=== PATIENT | male | born 1985 | race Caucasian/White ===

== ENCOUNTER 2016-06-12 15:17 | Emergency (ER) | payer MEDICAID ==
[~2016-06-12] VITALS: Ht 185.4 cm; Wt 91.0 kg
[2016-06-12 15:18] VITALS: BP 114/83; PULSE 91; TEMP 98.3; O2SAT 97
[2016-06-12] MEDS ORDERED: ANTICRE6 (15:45)
[2016-06-12] MEDS ORDERED: KETOROLAC TROMETHAMINE 60 MG/2 ML (IM) VIAL IM ONE (16:15)
[2016-06-12] MEDS ORDERED: CLINDAMYCIN PHOS 600 MG/4 ML VIAL IM ONE (16:15)
--- NOTE | 2016-06-12 16:15 | PD ---
HPI Chief Complaint: Oral / Dental Pain or Problem Time Seen by Provider: 16:09 Travel History International Travel<30 days: No Contact w/Intl Traveler<30days: No Traveled to known affect area: No History of Present Illness HPI 30-year-old [place] male presents to emergency department with several day history of left lower jaw pain and swelling with some spontaneous drainage yesterday. Patient's pain is centered over the #18 tooth. He has localized gingival swelling tenderness. Patient denies difficulty swallowing or neck pain. He denies fever, chills, or other symptoms. He has no known drug allergies. [facility] Past Medical History Medical History: Denies Significant Hx Tetanus Vaccination: > 5 Years Past Surgical History Surgical History: No Previous Surgery Social History Alcohol Use: No Tobacco Use: No Allergies-Medications (Allergen,Severity, Reaction): Coded Allergies: No Known Allergies (Unverified , 06/12/16) Reported Meds & Prescriptions Reported Meds & Active Scripts Active Reported [Antibiotic] Review of Systems Except as stated in HPI: all other systems reviewed are Neg General / Constitutional: No: Fever Eyes: No: Visual changes HENT: Positive: Dental Difficulties, No: Headaches, Sore Throat, Rhinitis, Rhinorrhea, Congestion, Neck Stiffness, Neck Pain, Gingival Bleeding, Ear Discharge, Earache Cardiovascular: No: Chest Pain or Discomfort Respiratory: No: Shortness of Breath Gastrointestinal: No: Abdominal Pain Genitourinary: No: Dysuria Musculoskeletal: No: Pain Skin: No Rash Neurologic: No: Weakness Psychiatric: No: Depression Endocrine: No: Polydipsia Hematologic/Lymphatic: No: Easy Bruising Physical Exam Narrative GENERAL: Patient appears in mild distress. SKIN: Warm and dry. Normal color. Normal turgor. HEAD: Atraumatic. Normocephalic. EYES: Pupils equal and round. No scleral icterus. No injection or drainage. ENT: No nasal bleeding or discharge. Mucous membranes pink and moist. Patient is tenderness at the #18 tooth. Patient has localized swelling and tenderness along the left lower jaw consistent with a dental abscess. Pharynx is clear. Uvula is midline. No significant lymphadenopathy. Airway is patent. NECK: Trachea midline. Nontender without lymphadenopathy. No Emeka's angina noted. CARDIOVASCULAR: Regular rate and rhythm. RESPIRATORY: No accessory muscle use. Clear to auscultation. Breath sounds equal bilaterally. MUSCULOSKELETAL: Extremities without clubbing, cyanosis, or edema. No obvious deformities. NEUROLOGICAL: Awake and alert. No obvious cranial nerve deficits. Motor grossly within normal limits. Five out of 5 muscle strength in the arms and legs. Normal speech. PSYCHIATRIC: Appropriate mood and affect; insight and judgment normal. Data Data Last Documented VS Vital Signs Date Time Temp Pulse Resp B/P Pulse Ox O2 Delivery O2 Flow Rate FiO2 06/12/16 15:18 98.3 91 114/83 97 Orders Ketorolac Inj (Toradol Inj) (06/12/16 16:15) Clindamycin Inj (Cleocin Inj) (06/12/16 16:15) Ubpt-Jufl-Jdsx Liq (Magic Mouthwash Adul (06/12/16 18:00) [facility] Medical Decision Making Medical Screen Exam Complete: Yes Emergency Medical Condition: Yes Differential Diagnosis Dental pain. Dental abscess. Need tramadol asked. Narrative Course Patient is felt to be medically stable at time of exam. Patient is given 600 mg clindamycin IM. Patient is given 60 mg Toradol IM. Patient is given Magic mouthwash for dental pain. Patient is felt to be stable to be discharged home. Patient is to continue clindamycin 300 mg 4 times a day 7 days. Patient is to take ibuprofen 800 mg 3 times daily with food. Patient given Magic mouthwash for dental pain every 2 hours when necessary. Patient is to seek dental care as soon as possible. Patient should return the emergency Department with worsening symptoms as needed. Diagnosis Primary Impression: Dental abscess Referrals: Dentist Patient Instructions: Dental Abscess (ED), General Instructions Additional Instructions: Patient is given 600 mg clindamycin IM. Patient is given 60 mg Toradol IM. Patient is given Magic mouthwash for dental pain. Patient is felt to be stable to be discharged home. Patient is to continue clindamycin 300 mg 4 times a day 7 days. Patient is to take ibuprofen 800 mg 3 times daily with food. Patient given Magic mouthwash for dental pain every 2 hours when necessary. Patient is to seek dental care as soon as possible. Patient should return the emergency Department with worsening symptoms as needed. Med/Other Pt SpecificInfo: Prescription(s) given Disposition: DISCHARGE HOME Condition: Stable Lorenzo Carrera Jun 12, 2016 16:15
[2016-06-12] MEDS ORDERED: CLIN150 PO (16:17)
[2016-06-12] MEDS ORDERED: IBUP800T23 PO (16:17)
[2016-06-12] MEDS ORDERED: MAGICADU2 SWISH-SWAL (16:17)
[2016-06-12] MEDS ORDERED: NYSTAT/DIPHENHY/LIDO MOUTHWASH (Adult) 120ML SWISH-SWAL ONE (16:30)
[2016-06-12] MEDS ORDERED: NYSTAT/DIPHENHY/LIDO MOUTHWASH (Adult) 120ML SWISH-SWAL SCH (18:00)
== END 2016-06-12 17:10 | disposition home or self-care (01) ==
LOC: NEPB 15:17
DX: K04.7 Periapical abscess without sinus (principal)
CPT/HCPCS: 96372; 99283; J1885

== ENCOUNTER 2016-07-01 12:14 | Emergency (ER) | payer MEDICAID ==
[~2016-07-01] VITALS: Ht 185.4 cm; Wt 90.5 kg
[~2016-07-01 12:14] MED LIST: ANTICRE6; CLIN150 PO; IBUP800T23 PO; MAGICADU2 SWISH-SWAL
[2016-07-01 12:16] VITALS: BP 142/88; PULSE 88; RESP 18; TEMP 97.7; O2SAT 100
[2016-07-01] MEDS ORDERED: methylPREDNISolone SOD SUCC 125 MG/2 ML VIAL IM ONE (14:30)
[2016-07-01] MEDS ORDERED: AMPICILLIN-SULBACTAM INJ 3 GM VIAL IM ONE (14:30)
--- NOTE | 2016-07-01 14:51 | PD ---
HPI Chief Complaint: Oral / Dental Pain or Problem Time Seen by Provider: 14:02 Travel History International Travel<30 days: No Contact w/Intl Traveler<30days: No Traveled to known affect area: No History of Present Illness HPI This patient complains of left sided jaw pain and swelling. He has dental infection and was seen here 3 weeks ago. He was prescribed 10 days of clindamycin at that visit. He filled the prescription for days later and took it for a few days and then stopped. The swelling is worse and so he came back to the ER. He does have a dentist appointment in 4 days. No fever. No drainage. Symptoms severity is moderate. No alleviating factors PFSH Past Medical History Medical other: Yes (dental abcess/left bottom) Social History Alcohol Use: No Tobacco Use: No Allergies-Medications (Allergen,Severity, Reaction): Coded Allergies: No Known Allergies (Unverified , 06/12/16) Reported Meds & Prescriptions Reported Meds & Active Scripts Active Prednisone 20 Mg Tab 40 Mg PO DAILY Take 40 mg (2 tablets) daily for 5 days Percocet (Oxycodone-Acetaminophen) 5-325 mg Tab 1 Tab PO Q6H PRN Augmentin (Amoxicillin-Clavulanate) 875-125 mg Tab 875 Mg PO BID not for use in CrCl <30 ml/min. Magic Mouthwash Adult Liq (Multi-Ingredient Mouthwash/Gargle) 120 Ml Susp 5 Ml SWISH-SWAL ACHS Each 5 mL contains: Nystatin 200,000 units, Diphenhydramine 4.25 mg, Viscous Lidocaine 10 mg, Miller syrup 0.8 mL Ibuprofen 800 Mg Tab 800 Mg PO Q8H PRN Cleocin (Clindamycin HCl) 150 Mg Cap 300 Mg PO Q6H 10 Days Reported [Antibiotic] Review of Systems General / Constitutional: No: Fever Eyes: No: Visual changes HENT: Positive: Dental Difficulties, No: Headaches Cardiovascular: No: Chest Pain or Discomfort Respiratory: No: Shortness of Breath Gastrointestinal: No: Abdominal Pain Genitourinary: No: Dysuria Musculoskeletal: Positive: Pain Skin: No Rash Neurologic: No: Weakness Psychiatric: No: Depression Endocrine: No: Polydipsia Hematologic/Lymphatic: No: Easy Bruising Physical Exam Narrative GENERAL: Well-nourished, well-developed patient. SKIN: Warm and dry. HEAD: Normocephalic. He does have some left lower facial swelling centered about the mandible. There is no fluctuance. No submental induration. Uvula midline. No jeopardy of airway. No redness or warmth or drainage. No gingival abscess seen. Multiple fillings are noted EYES: No scleral icterus. No injection or drainage. NECK: Supple, trachea midline. No JVD or lymphadenopathy. CARDIOVASCULAR: Regular rate and rhythm without murmurs, gallops, or rubs. RESPIRATORY: Breath sounds equal bilaterally. No accessory muscle use. GASTROINTESTINAL: Abdomen soft, non-tender, nondistended. MUSCULOSKELETAL: No cyanosis, or edema. BACK: Nontender without obvious deformity. No CVA tenderness. Data Data Last Documented VS Vital Signs Date Time Temp Pulse Resp B/P Pulse Ox O2 Delivery O2 Flow Rate FiO2 07/01/16 12:16 97.7 88 18 142/88 100 Room Air Orders Ampicillin-Sulbactam Inj (Unasyn Inj) (07/01/16 14:30) Methylprednisolone So Succ Inj (Solumedr (07/01/16 14:30) MDM Medical Decision Making Medical Screen Exam Complete: Yes Emergency Medical Condition: Yes Medical Record Reviewed: Yes Differential Diagnosis Dental abscess, cavity, facial cellulitis Narrative Course I have reviewed the patient's electronic medical record. Patient was seen here 3 weeks ago for the same thing and I reviewed that note I gave him injection of Unasyn and Solu-Medrol I wrote him 10 days of Augmentin and 3 days of prednisone and something for pain As noted he has dental follow-up in 4 days Diagnosis Primary Impression: Dental abscess Additional Instructions: The patient was advised to follow up with their dentist and return if they worsen. The patient was warned about potential sedation for the medications they will receive on prescription. Med/Other Pt SpecificInfo: Prescription(s) given Scripts Prednisone 20 Mg Tab40 Mg PO DAILY #6 TAB Ref 0 Take 40 mg (2 tablets) daily for 5 days Prov:Jared Vo MD 07/01/16 Oxycodone-Acetaminophen (Percocet)5-325 mg Tab1 Tab PO Q6H PRN (PAIN) #15 TAB Ref 0 Prov:Jared Vo MD 07/01/16 Amoxicillin-Clavulanate (Augmentin)875-125 mg Ttu558 Mg PO BID #20 TAB Ref 0 not for use in CrCl <30 ml/min. Prov:Jared Vo MD 07/01/16 Disposition: 01 DISCHARGE HOME Condition: Stable Jared Vo MD Jul 01, 2016 14:51
[2016-07-01] MEDS ORDERED: PERC5TAB12 PO (16:03)
[2016-07-01] MEDS ORDERED: AUGM875T PO (16:03)
[2016-07-01] MEDS ORDERED: PRED20 PO (16:03)
== END 2016-07-01 16:15 | disposition home or self-care (01) ==
LOC: NEPC 12:14
DX: K04.7 Periapical abscess without sinus (principal)
CPT/HCPCS: 96372; 99283; J0295; J2930

== ENCOUNTER 2017-06-15 00:37 | Emergency (ER) | payer MEDICAID ==
[~2017-06-15] VITALS: Ht 185.4 cm; Wt 82.0 kg
[~2017-06-15 00:37] MED LIST changes: +AUGM875T PO; +IBUP1TAB7 PO; -IBUP800T23 PO; +PERC5TAB12 PO; +PRED20 PO
[2017-06-15 00:44] VITALS: BP 144/82; PULSE 84; RESP 20; TEMP 98; O2SAT 98
[2017-06-15 01:00] VITALS: RESP 16; O2SAT 98
--- NOTE | 2017-06-15 01:08 | PD ---
HPI Chief Complaint: General Weakness Time Seen by Provider: 00:52 Travel History International Travel<30 days: No Contact w/Intl Traveler<30days: No Traveled to known affect area: No History of Present Illness HPI The patient is a 31 year old male who presents to the [facility] emergency department with a history of withdrawal symptoms that began 2 days ago. He last took an oxycodone on Thursday. He has been taking oxycodone intermittently for the last 6 years. He is purchasing them from the street. He was using 30mg tablets 2-3 per day. He tried weaning himself off of the medication. He was snorting the pills. He denies any vomiting or diarrhea. He last moved his bowels 5 days ago. He has a headache over both temples. He has had some chills without fever. Otherwise on review of systems, the patient denies having any cough or congestion, neck pain, chest pain, shortness of breath, abdominal pain , urinary symptoms, or neurologic symptoms. The patient reports having generalized body aches with difficulty sleeping. [facility] Past Medical History Narrative Medical The patient's past medical history is significant for opiate abuse. Medical History: Denies Significant Hx Immunizations Current: Yes Past Surgical History Surgical History: No Previous Surgery Social History Alcohol Use: No Tobacco Use: Yes (1ppd) Substance Use: Yes (oxycodone) Allergies-Medications (Allergen,Severity, Reaction): Coded Allergies: No Known Allergies (Unverified Adverse Reaction, Unknown, 06/15/17) Reported Meds & Prescriptions Reported Meds & Active Scripts Active Clonidine (Clonidine HCl) 0.1 Mg Tab 0.1 Mg PO BID Vistaril (Hydroxyzine Pamoate) 25 Mg Cap 25 Mg PO HS 7 Days Review of Systems Except as stated in HPI: all other systems reviewed are Neg General / Constitutional: Positive: Chills, No: Fever Eyes: No: Visual changes HENT: No: Headaches Cardiovascular: No: Chest Pain or Discomfort Respiratory: No: Shortness of Breath Gastrointestinal: Positive: Nausea, Constipation, No: Vomiting, Diarrhea, Abdominal Pain Genitourinary: No: Dysuria Musculoskeletal: Positive: Myalgias, No: Pain Skin: No Rash Neurologic: No: Weakness, Focal Abnormalities, Change in Mentation, Slurred Speech, Sensory Disturbance Psychiatric: No: Depression Endocrine: No: Polydipsia Hematologic/Lymphatic: No: Easy Bruising Physical Exam Narrative General: The patient is a well-developed well-nourished male in no acute distress Head and Neck exam: Head is normocephalic atraumatic. Eyes: EOMI, pupils are equal round and reactive to light. Nose: Midline septum with pink mucous membranes Mouth: Dentition unremarkable. Moist mucus membranes. Posterior oropharynx is not erythematous. No tonsillar hypertrophy. Uvula midline. Airway patent. Neck: No palpable lymphadenopathy. No nuchal rigidity. No thyromegaly. Cardiovascular: Regular rate and rhythm without murmurs, gallops, or rubs. No pulse deficit to the extremities on simultaneous auscultation and palpation of his radial artery. Lungs: Clear to auscultation bilaterally. No wheezes, rhonchi, or rales. Abdomen: Soft, without tenderness to palpation in all 4 quadrants of the abdomen. No guarding, rebound, or rigidity. Normal bowel sounds are audible. No tenderness on palpation of McBurney's point. Extremities: No clubbing, cyanosis, or edema. 2+ pulses in all 4 extremities. No calf tenderness on palpation. Back: No spinous process tenderness to palpation. No costovertebral angle tenderness to palpation. Neurologic Exam: Grossly nonfocal. Skin Exam: No rash noted. Intact skin that is warm and dry. Data Data Last Documented VS Vital Signs Date Time Temp Pulse Resp B/P (MAP) Pulse Ox O2 Delivery O2 Flow Rate FiO2 06/15/17 01:00 16 98 Room Air 06/15/17 00:44 98.0 84 144/82 (102) Orders Orders Electrocardiogram (06/15/17 01:02) Complete Blood Count With Diff (06/15/17 01:02) Comprehensive Metabolic Panel (06/15/17 01:02) Lipase (06/15/17 01:02) Urinalysis - C+S If Indicated (06/15/17 01:02) Magnesium (Mg) (06/15/17 01:02) Iv Access Insert/Monitor (06/15/17 01:02) Ecg Monitoring (06/15/17 01:02) Oximetry (06/15/17 01:02) Drug Screen, Random Urine (06/15/17 01:02) Alcohol (Ethanol) (06/15/17 01:02) Salicylates (Aspirin) (06/15/17 01:02) Tylenol (Acetaminophen) (06/15/17 01:02) Sodium Chlor 0.9% 1000 Ml Inj (Ns 1000 M (06/15/17 02:00) Clonidine (Catapres) (06/15/17 02:00) Ondansetron Inj (Zofran Inj) (06/15/17 02:00) Hydroxyzine Pamoate (Vistaril) (06/15/17 02:00) Ed Discharge Order (06/15/17 03:43) Labs Laboratory Tests Test 06/15/17 01:00 06/15/17 01:50 White Blood Count 7.5 TH/MM3 Red Blood Count 4.95 MIL/MM3 Hemoglobin 14.7 GM/DL Hematocrit 42.1 % Mean Corpuscular Volume 85.1 FL Mean Corpuscular Hemoglobin 29.7 PG Mean Corpuscular Hemoglobin Concent 34.8 % Red Cell Distribution Width 13.2 % Platelet Count 322 TH/MM3 Mean Platelet Volume 7.8 FL Neutrophils (%) (Auto) 57.6 % Lymphocytes (%) (Auto) 30.6 % Monocytes (%) (Auto) 10.5 % Eosinophils (%) (Auto) 0.7 % Basophils (%) (Auto) 0.6 % Neutrophils # (Auto) 4.3 TH/MM3 Lymphocytes # (Auto) 2.3 TH/MM3 Monocytes # (Auto) 0.8 TH/MM3 Eosinophils # (Auto) 0.1 TH/MM3 Basophils # (Auto) 0.0 TH/MM3 CBC Comment DIFF FINAL Differential Comment Blood Urea Nitrogen 11 MG/DL Creatinine 0.82 MG/DL Random Glucose 112 MG/DL Total Protein 7.3 GM/DL Albumin 3.7 GM/DL Calcium Level 8.9 MG/DL Magnesium Level 2.0 MG/DL Alkaline Phosphatase 57 U/L Aspartate Amino Transf (AST/SGOT) 13 U/L Alanine Aminotransferase (ALT/SGPT) 27 U/L Total Bilirubin 0.3 MG/DL Sodium Level 142 MEQ/L Potassium Level 3.5 MEQ/L Chloride Level 109 MEQ/L Carbon Dioxide Level 28.1 MEQ/L Anion Gap 5 MEQ/L Estimat Glomerular Filtration Rate 110 ML/MIN Lipase 375 U/L Salicylates Level 2.1 MG/DL Acetaminophen Level LESS THAN 2.0 MCG/ML Ethyl Alcohol Level LESS THAN 3 MG/DL Urine Color LIGHT-YELLOW Urine Turbidity CLEAR Urine pH 7.0 Urine Specific [place] 1.008 Urine Protein NEG mg/dL Urine Glucose (UA) NEG mg/dL Urine Ketones NEG mg/dL Urine Occult Blood NEG Urine Nitrite NEG Urine Bilirubin NEG Urine Urobilinogen LESS THAN 2.0 MG/DL Urine Leukocyte Esterase NEG Urine RBC LESS THAN 1 /hpf Urine WBC LESS THAN 1 /hpf Microscopic Urinalysis Comment CULT NOT INDICATED Urine Opiates Screen NEG Urine Barbiturates Screen NEG Urine Amphetamines Screen NEG Urine Benzodiazepines Screen NEG Urine Cocaine Screen NEG Urine Cannabinoids Screen NEG MDM Medical Decision Making Medical Screen Exam Complete: Yes Emergency Medical Condition: Yes Medical Record Reviewed: Yes Differential Diagnosis Electrolyte derangements, versus opiate withdrawal syndrome, versus viral illness Narrative Course During the course of the patient's emergency department visit, the patient's history, examination, and differential diagnosis were reviewed with the patient. The patient was placed on a air sampling and monitoring with oximetry and frequent blood pressure monitoring. The patient had IV access obtained and blood work sent for analysis. The patient was initially provided Zofran for nausea, normal saline 1 L IV fluid bolus, Vistaril 25 mg p.o. 1, clonidine 0.1 mg p.o. 1. The patient's laboratory studies were reviewed and remarkable for a CBC that is unremarkable, CMP is remarkable for chloride of 109, glucose 112, AST 13, lipase 375,, urinalysis is unremarkable, UDS negative, Salicylates 2.1, acetaminophen less than 2, alcohol level less than 3. The patient is given information regarding the local detoxification center, [facility]. The patient was provided a prescription for Vistaril and clonidine at discharge. The patient is resting comfortably and feels better, is alert and in no distress. The patient's results and examination findings were discussed with the patient. The repeat examination is unremarkable and benign. The history, exam, diagnostic testing, and current condition do not suggest any significant pathology to warrant further testing, continued ED treatment, admission, or surgical evaluation at this point. The vital signs have been stable. The patient does not have uncontrollable pain, intractable vomiting, or other significant symptoms. The patient's condition is stable and appropriate for discharge. The patient will pursue further outpatient evaluation with a primary care physician or other designated or consulting physician as indicated in the discharge instructions. The patient expressed understanding and was agreeable with this plan. Diagnosis Primary Impression: Opiate abuse, episodic Additional Impression: Opiate withdrawal Referrals: [facility] days Med/Other Pt SpecificInfo: Prescription(s) given Scripts Clonidine (Clonidine) 0.1 Mg Tab 0.1 MG PO BID for Blood Pressure Management, #6 TAB 0 Refills Prov: Radha Berg MD 06/15/17 Hydroxyzine Pamoate (Vistaril) 25 Mg Cap 25 MG PO HS for Insomnia for 7 Days, CAP 0 Refills Prov: Radha Berg MD 06/15/17 Disposition: DISCHARGE HOME Condition: Stable Radha Berg MD Jun 15, 2017 01:08
[2017-06-15 01:41] LABS: AUTOMATED NEUTROPHIL # 4.3 TH/MM3 (1.8-7.7); BASOPHIL % 0.6 % (0.0-2.0); EOSINOPHIL # 0.1 TH/MM3 (0-0.4); EOSINOPHIL % 0.7 % (0.0-4.0); HEMATOCRIT 42.1 % (39.0-51.0); HEMOGLOBIN 14.7 GM/DL (13.0-17.0); LYMPH % 30.6 % (9.0-44.0); LYMPHOCYTE # 2.3 TH/MM3 (1.0-4.8); MEAN CELL VOLUME 85.1 FL (80.0-100.0); MEAN CORPUSCULAR HEMOGLOBIN 29.7 PG (27.0-34.0); MEAN CORPUSCULAR HGB CONC 34.8 % (32.0-36.0); MEAN PLATELET VOLUME 7.8 FL (7.0-11.0); MONO % 10.5 % (0.0-8.0); MONOCYTE # 0.8 TH/MM3 (0-0.9); NEUT % 57.6 % (16.0-70.0); PLATELET COUNT 322 TH/MM3 (150-450); RED BLOOD COUNT 4.95 MIL/MM3 (4.50-5.90); RED CELL DISTRIBUTION WIDTH 13.2 % (11.6-17.2); WHITE BLOOD COUNT 7.5 TH/MM3 (4.0-11.0)
[2017-06-15 01:56] LABS: ALBUMIN 3.7 GM/DL (3.4-5.0); ALT (GPT) 27 U/L (12-78); AST (GOT) 13 U/L (15-37); BICARBONATE 28.1 MEQ/L (21.0-32.0); BLOOD UREA NITROGEN 11 MG/DL (7-18); CALCIUM 8.9 MG/DL (8.5-10.1); CHLORIDE 109 MEQ/L (98-107); CREATININE 0.82 MG/DL (0.60-1.30); GLOMERULAR FILTRATION RATE 110 ML/MIN (>89); GLUCOSE,RANDOM 112 MG/DL (74-106); SODIUM (NA) 142 MEQ/L (136-145)
[2017-06-15 01:59] LABS: ALKALINE PHOSPHATASE 57 U/L (45-117); TOTAL BILIRUBIN ADULT 0.3 MG/DL (0.2-1.0); TOTAL PROTEIN 7.3 GM/DL (6.4-8.2)
[2017-06-15 02:00] LABS: ACETAMINOPHEN LESS THAN 2.0 MCG/ML (10.0-30.0)
[2017-06-15] MEDS ORDERED: cloNIDine HCL 0.1 MG TAB PO ONE (02:00)
[2017-06-15] MEDS ORDERED: ONDANSETRON HCL 4 MG/2 ML VIAL IV PUSH ONE (02:00)
[2017-06-15] MEDS ORDERED: SODIUM CHLOR 0.9% 1000 ML INJ 1,000 ML IV ONE (02:00)
[2017-06-15] MEDS ORDERED: hydrOXYzine PAMOATE 25 MG CAP PO ONE (02:00)
[2017-06-15 02:57] LABS: BILIRUBIN, URINE NEG (NEG); BLOOD, URINE NEG (NEG); GLUCOSE,URINE NEG (NEG); KETONE, URINE NEG (NEG); NITRITE,URINE NEG (NEG); URINE COLOR LIGHT-YELLOW (YELLW/STRAW); URINE LEUKOCYTE ESTERASE NEG (NEG)
[2017-06-15] MEDS ORDERED: CLON0.1T PO (03:43)
[2017-06-15] MEDS ORDERED: VIST25CA PO (03:43)
--- NOTE | 2017-06-15 13:39 | EKG ---
Date Performed: 06/15/2017 Time Performed: 01:18:03 PTAGE: 31 years EKG: Sinus rhythm INCOMPLETE RIGHT BUNDLE BRANCH BLOCK BORDERLINE ECG NO PREVIOUS TRACING DOCTOR: Farrukh Verdugo Interpretating Date/Time 06/15/2017 13:35:36
== END 2017-06-15 04:55 | disposition home or self-care (01) ==
LOC: NEPC 00:37
DX: F11.23 Opioid dependence with withdrawal (principal); R94.31 Abnormal electrocardiogram [ECG] [EKG]; Z72.0 Tobacco use
CPT/HCPCS: 80053; 80307; 81001; 83690; 83735; 85025; 93005; 96361; 96374; 99284; J2405; J7030; Q0177